=== PATIENT | female | born 1945 | race Caucasian/White ===

== ENCOUNTER 2024-08-20 02:35 | Inpatient (IN) | payer MEDICARE, BC ==
--- NOTE | 2024-08-20 04:11 | XR ---
EXAM: XR Abdomen, 1 View CLINICAL HISTORY: ITS.REASON XR Reason: pain TECHNIQUE: Frontal supine view of the abdomen/pelvis. COMPARISON: No relevant prior studies available. FINDINGS: Gastrointestinal tract: Dilated bowel measuring up to 5.6 cm, concerning for bowel obstruction. Consider CT abdomen pelvis for further evaluation. Bones/joints: Unremarkable. IMPRESSION: Dilated bowel measuring up to 5.6 cm, concerning for bowel obstruction. Consider CT abdomen pelvis for further evaluation.
[2024-08-20] MEDS: SODIUM CHLORIDE 0.9% 500 ML 500 ML IV STA (04:47)
[2024-08-20] MEDS: ONDANSETRON 4 MG/2 ML VIAL IVP STA (04:47)
[2024-08-20 04:57] LABS: ALT 32 U/L (4-34); AST 41 U/L (14-36); African American GFR (CKD) >90 (>60 ml/min/1.73 sqM); Albumin 4.9 g/dL (3.5-5.0); Alkaline Phosphatase 99 U/L (38-126); Amylase 50 U/L (30-110); Anion Gap 13 mmol/L; Blood Urea Nitrogen 17 mg/dL (7-17); Calcium 10.1 mg/dL (8.4-10.2); Carbon Dioxide 22 mmol/L (22-30); Chloride 107 mmol/L (98-107); Glucose 185 mg/dL (74-99); Lipase 53 U/L (23-300); Non-African American GFR(CKD) 88 (>60 ml/min/1.73 sqM); Potassium 3.9 mmol/L (3.5-5.1); Sodium 142 mmol/L (137-145); Total Protein 7.2 g/dL (6.3-8.2)
[2024-08-20 05:06] LABS: Basophils # (A) 0.05 10*3/uL (0.00-0.10); Basophils % (A) 0.8 %; Eosinophils # (A) 0.03 10*3/uL (0.04-0.35); Eosinophils % (A) 0.5 %; HCT 46.4 % (37.2-46.3); HGB 16.1 g/dL (12.0-15.0); Lymphocytes # (A) 0.26 10*3/uL (0.90-5.00); Lymphocytes % (A) 4.0 %; MCH 31.0 pg (27.0-32.0); MCHC 34.7 g/dL (32.0-37.0); MCV 89.4 fL (80.0-97.0); Monocytes # (A) 0.61 10*3/uL (0.20-1.00); Monocytes % (A) 9.4 %; Neutrophils # (A) 5.53 10*3/uL (1.80-7.70); Neutrophils % (A) 85.1 %; Platelet Count 318 10*3/uL (140-440); RBC 5.19 10*6/uL (4.10-5.20); RDW 12.3 % (11.5-14.5); WBC 6.49 10*3/uL (4.50-10.00)
--- NOTE | 2024-08-20 06:40 | CT ---
EXAM: CT Abdomen and Pelvis With Intravenous Contrast CLINICAL HISTORY: ITS.REASON CT Reason: abdominal pain TECHNIQUE: Axial computed tomography images of the abdomen and pelvis with intravenous contrast. CTDI is 13.4 mGy and DLP is 633.6 mGy-cm. This CT exam was performed using one or more of the following dose reduction techniques: automated exposure control, adjustment of the mA and/or kV according to patient size, and/or use of iterative reconstruction technique. COMPARISON: No relevant prior studies available. FINDINGS: Lung bases: Unremarkable. No mass. No consolidation. Mediastinum: Slighted hiatal hernia containing the proximal portion of the stomach. Mild distal esophageal wall thickening. ABDOMEN: Liver: The liver is enlarged. No evidence of hepatic mass. Likely focal fatty sparing is seen within the left lobe of the liver. Gallbladder and bile ducts: Unremarkable. No calcified stones. No ductal dilation. Pancreas: Unremarkable. No mass. No ductal dilation. Spleen: Unremarkable. No splenomegaly. Adrenals: Unremarkable. No mass. Kidneys and ureters: Unremarkable. No solid mass. No hydronephrosis. Stomach and bowel: Diffuse dilatation of the small bowel with a transition point seen above the level of the anastomosis best characterized on series 201 image 45 through 53. Postsurgical changes are seen to the colon. Mild wall thickening of the remaining colon. PELVIS: Appendix: No findings to suggest acute appendicitis. Bladder: Unremarkable. No mass. Reproductive: Unremarkable as visualized. ABDOMEN and PELVIS: Intraperitoneal space: Unremarkable. No free air. No significant fluid collection. Bones/joints: Degenerative changes are seen within the spine and hips. No acute fracture. No dislocation. Soft tissues: Unremarkable. Vasculature: Calcifications are seen within a nondilated aorta. Lymph nodes: Unremarkable. No enlarged lymph nodes. IMPRESSION: 1. Findings consistent with a small bowel obstruction with transition point seen at the level of the anastomosis. 2. Wall thickening of the remaining colon and rectum which may represent underlying infectious or inflammatory process.
[2024-08-20] MEDS ORDERED: KETOROLAC 15 MG/ML 1 ML VIAL IVP PRN (07:06)
[2024-08-20] MEDS ORDERED: NALOXONE 0.4 MG/ML 1 ML VIAL IV PRN (07:06)
--- NOTE | 2024-08-20 07:09 | ED ---
General Adult HPI - General Chief complaint: Nausea/Vomiting/Diarrhea Stated complaint: NVD Time Seen by Provider: 08/20/24 04:08 Source: patient, RN notes reviewed, old records reviewed Mode of arrival: ambulatory Limitations: no limitations - History of Present Illness Initial comments: 79-year-old female who presents emergency department concern for possible bowel obstruction. Patient has been having brown emesis throughout the day today. No recent bowel movements. Has a history of multiple colon resection secondary to colon cancer and obstructions. Denies any chest pain or shortness of breath. Has no other acute complaints at this time. Presents for further evaluation. - Related Data Allergies Allergy/AdvReac Type Severity Reaction Status Date / Time No Known Allergies Allergy Verified 08/20/24 02:41 Review of Systems ROS Statement: Those systems with pertinent positive or pertinent negative responses have been documented in the HPI. Review of Systems: CONST: Denies fever EYES: Denies blurry vision ENT: Denies nasal congestion C/V: Denies Chest pain RESP: Denies shortness of breath GI: Endorses abdominal pain : Denies dysuria SKIN: Denies rash. MSK: Denies joint pain. NEURO: Denies headache ROS Other: All systems not noted in ROS Statement are negative. Past Medical History Past Medical History: Cancer Additional Past Medical History / Comment(s): colon cancer, History of Any Multi-Drug Resistant Organisms: None Reported Additional Past Surgical History / Comment(s): colon Past Psychological History: No Psychological Hx Reported Smoking Status: Never smoker Past Alcohol Use History: None Reported Past Drug Use History: None Reported General Exam - General Exam Comments Initial Comments: General: Appears in mild to moderate distress secondary to abdominal pain. HEAD: Normal with no signs of head trauma. EYES: PERRLA, EOMI, conjunctiva normal, no discharge. ENT: Hearing grossly intact, normal oropharynx. RESPIRATORY: Clear breath sounds bilaterally. No wheezes, rales, or rhonchi. C/V: Regular rate and rhythm. S1 and S2 auscultated, no edema, peripheral pulses 2+ and intact throughout ABD: Abdomen is soft. Mildly distended that is generalized. Generalized tenderness to palpation. No guarding or rebound tenderness. No peritoneal signs. EXT: No obvious deformity. SKIN: No rashes or lesions observed on exposed skin. NEURO: Alert and oriented x 4. Limitations: no limitations Course Vital Signs 08/20/24 08/20/24 02:36 08:05 Temperature 99.6 F Pulse Rate 115 H 94 Respiratory 18 20 Rate Blood Pressure 159/91 168/68 O2 Sat by Pulse 97 98 Oximetry Medical Decision Making - Medical Decision Making Was pt. sent in by a medical professional or institution ([facility] Galarza, [facility], urgent care, hospital, or group home...) When possible be specific @ -No Did you speak to anyone other than the patient for history (EMS, parent, family, police, friend...)? What history was obtained from this source @ -No Did you review nursing and triage notes (agree or disagree)? Why? @ -I reviewed and agree with nursing and triage notes Were old charts reviewed (outside hosp., previous admission, EMS record, old EKG, old radiological studies, urgent care reports/EKG's, group home records)? Report findings @ -No old charts were reviewed Differential Diagnosis (chest pain, altered mental status, abdominal pain women, abdominal pain men, vaginal bleeding, weakness, fever, dyspnea, syncope, headache, dizziness, GI bleed, back pain, seizure, CVA, palpatations, mental health, musculoskeletal)? @ -Differential Abdominal Pain Women: Appendicitis, Cholecystitis, diverticulosis, ischemic bowel, pancreatitis, hepatitis, UTI, gastroenteritis, AAA, incarcerated hernia, bowel obstruction, co nstipation, inflammatory bowel, hepatitis, peptic ulcer disease, splenic infarction, perforated viscus, vulvitis, ovarian torsion, PID, kidney stone, placenta abruption, this is not meant to be an all-inclusive list EKG interpreted by me (3pts min.). @ -None done X-rays interpreted by me (1pt min.). @ -KUB x-ray shows pattern concerning for bowel obstruction. CT interpreted by me (1pt min.). @ -CT abdomen pelvis shows a small bowel obstruction with a transition point at the anastomosis site U/S interpreted by me (1pt. min.). @ -None done What testing was considered but not performed or refused? (CT, X-rays, U/S, labs)? Why? @ -None What meds were considered but not given or refused? Why? @ -None Did you discuss the management of the patient with other professionals (professionals i.e. , DONITA, [employer], lab, RT, psych nurse, social services coordinator, ethanol quality leader, teacher, cash management officer, director of casework department)? Give summary @ -Discussed with Dr. Rawls who wants patient mated to medicine. Patient made n.p.o. and NG tube placed. Put on low intermittent suction. With admitting team, Dr. Pascual, who accepted the admission. Was smoking cessation discussed for >3mins.? @ -No Was critical care preformed (if so, how long)? @ -No Were there social determinants of health that impacted care today? How? (H omelessness, low income, unemployed, alcoholism, drug addiction, transportation, low edu. Level, literacy, decrease access to med. care, snf, rehab)? @ -No Was there de-escalation of care discussed even if they declined (Discuss DNR or withdrawal of care, Hospice)? DNR status @ -No What co-morbidities impacted this encounter? (DM, HTN, Smoking, COPD, CAD, Cancer, CVA, ARF, Chemo, Hep., AIDS, mental health diagnosis, sleep apnea, morbid obesity)? @ -None Was patient admitted / discharged? Hospital course, mention meds given and route, prescriptions, significant lab abnormalities, going to OR and other pertinent info. @ -Based on patient's presentation and physical exam, presents emergency department with suspicion for small bowel obstruction. KUB obtained while patient was in triage which shows findings concerning for 1. We will obtain CT as well as labs. Patient was in agreement this plan. Symptomatic treat with IV fluids, Zofran, Toradol, Protonix. Vitals within acceptable limits. Laboratory studies are remarkable for mild lactic acidosis of 2.2. Remainder the labs unremarkable. CT shows small bowel obstruction. I updated the patient. NG tube will be placed in put on low intermittent suction. She will be admitted. Patient made NPO. Discussed with Dr. Rawls who wants patient mated to medicine. Patient made n.p.o. and NG tube placed. Put on low intermittent suction. With admitting team, Dr. Pascual, who accepted the admission. Undiagnosed new problem with uncertain prognosis? @ -No Drug Therapy requiring intensive monitoring for toxicity (Heparin, Nitro, Insulin, Cardizem)? @ -No Were any procedures done? @ -No Diagnosis/symptom? @ -Small bowel obstruction Acute, or Chronic, or Acute on Chronic? @ -Acute Uncomplicated (without systemic symptoms) or Complicated (systemic symptoms)? @ -Complicated Side effects of treatment? @ -No Exacerbation, Progression, or Severe Exacerbation? @ -No Poses a threat to life or bodily function? How? (Chest pain, USA, GA, pneumonia, PE, COPD, DKA, ARF, appy, cholecystitis, CVA, Diverticulitis, Homicidal, Suicidal, threat to staff... and all critical care pts) @ -Yes - Lab Data Result diagrams: 08/20/24 04:27 08/20/24 04:27 Lab Results 08/20/24 08/20/24 08/20/24 Range/Units 04:27 04:27 04:27 WBC 6.49 (4.50-10.00) 10*3/uL RBC 5.19 (4.10-5.20) 10*6/uL Hgb 16.1 H (12.0-15.0) g/dL Hct 46.4 H (37.2-46.3) % MCV 89.4 (80.0-97.0) fL MCH 31.0 (27.0-32.0) pg MCHC 34.7 (32.0-37.0) g/dL Plt Count 318 (140-440) 10*3/uL MPV 8.8 L (9.5-12.2) fL Immature Gran % (Auto) 0.2 % Neutrophils % 85.1 % Lymphocytes % 4.0 % Monocytes % 9.4 % Eosinophils % 0.5 % Basophils % 0.8 % Immature Gran # 0.01 (0.00-0.04) 10*3/uL Neutrophils # 5.53 (1.80-7.70) 10*3/uL Lymphocytes # 0.26 L (0.90-5.00) 10*3/uL Monocytes # 0.61 (0.20-1.00) 10*3/uL Eosinophils # 0.03 L (0.04-0.35) 10*3/uL Basophils # 0.05 (0.00-0.10) 10*3/uL Sodium 142 (137-145) mmol/L Potassium 3.9 (3.5-5.1) mmol/L Chloride 107 (98-107) mmol/L Carbon Dioxide 22 (22-30) mmol/L Anion Gap 13 mmol/L BUN 17 (7-17) mg/dL Creatinine 0.58 (0.52-1.04) mg/dL Est GFR (CKD-EPI)AfAm >90 (>60 ml/min/1.73 sqM) Est GFR (CKD-EPI)NonAf 88 (>60 ml/min/1.73 sqM) Glucose 185 H (74-99) mg/dL Lactic Ac Sepsis Rflx Plasma Lactic Acid Evgeny 2.2 H* (0.7-2.0) mmol/L Calcium 10.1 (8.4-10.2) mg/dL Total Bilirubin 1.1 (0.2-1.3) mg/dL AST 41 H (14-36) U/L ALT 32 (4-34) U/L Alkaline Phosphatase 99 (38-126) U/L Total Protein 7.2 (6.3-8.2) g/dL Albumin 4.9 (3.5-5.0) g/dL Amylase 50 (30-110) U/L Lipase 53 (23-300) U/L // Range/Units 05:30 WBC (4.50-10.00) 10*3/uL RBC (4.10-5.20) 10*6/uL Hgb (12.0-15.0) g/dL Hct (37.2-46.3) % MCV (80.0-97.0) fL MCH (27.0-32.0) pg MCHC (32.0-37.0) g/dL Plt Count (140-440) 10*3/uL MPV (9.5-12.2) fL Immature Gran % (Auto) % Neutrophils % % Lymphocytes % % Monocytes % % Eosinophils % % Basophils % % Immature Gran # (0.00-0.04) 10*3/uL Neutrophils # (1.80-7.70) 10*3/uL Lymphocytes # (0.90-5.00) 10*3/uL Monocytes # (0.20-1.00) 10*3/uL Eosinophils # (0.04-0.35) 10*3/uL Basophils # (0.00-0.10) 10*3/uL Sodium (137-145) mmol/L Potassium (3.5-5.1) mmol/L Chloride (98-107) mmol/L Carbon Dioxide (22-30) mmol/L Anion Gap mmol/L BUN (7-17) mg/dL Creatinine (0.52-1.04) mg/dL Est GFR (CKD-EPI)AfAm (>60 ml/min/1.73 sqM) Est GFR (CKD-EPI)NonAf (>60 ml/min/1.73 sqM) Glucose (74-99) mg/dL Lactic Ac Sepsis Rflx Y Plasma Lactic Acid Evgeny (0.7-2.0) mmol/L Calcium (8.4-10.2) mg/dL Total Bilirubin (0.2-1.3) mg/dL AST (14-36) U/L ALT (4-34) U/L Alkaline Phosphatase (38-126) U/L Total Protein (6.3-8.2) g/dL Albumin (3.5-5.0) g/dL Amylase (30-110) U/L Lipase (23-300) U/L Disposition Clinical Impression: Small bowel obstruction Disposition: ADMITTED IP TO THIS [facility] Condition: Stable Time of Disposition: 07:08
[2024-08-20] MEDS: KETOROLAC 15 MG/ML 1 ML VIAL IVP STA (07:58)
[2024-08-20] MEDS: ONDANSETRON 4 MG/2 ML VIAL IVP PRN (07:58)
[2024-08-20] MEDS: LACTATED RINGERS 1,000 ML IV SCH (07:59)
[2024-08-20] MEDS: PANTOPRAZOLE 40 MG/10 ML VIAL IVP STA (07:59)
[2024-08-20] MEDS: PANTOPRAZOLE 40 MG/10 ML VIAL IV SCH (08:11)
--- NOTE | 2024-08-20 08:53 | XR ---
EXAMINATION TYPE: XR KUB portable DATE OF EXAM: 08/20/2024 8:28 AM COMPARISON: 08/20/2024. CLINICAL INDICATION: Female, 79 years old with history of ngt placemnt; TECHNIQUE: One radiographic view of the abdomen was obtained. FINDINGS: The bowel gas pattern is nonspecific without dilated loops of small or large bowel. . Fecal material and gas are demonstrated throughout the colon and rectum. There is no evidence for organome loida or pneumoperitoneum. No acute osseous process. No abnormal calcifications are present. Nasogastric tube in satisfactory position over the gastric lumen in the left upper quadrant. IMPRESSION: Nasogastric tube in satisfactory position over the gastric lumen in the left upper quadrant. Nonspeci fic bowel gas pattern without radiographic evidence for acute process. [facility], , 08/20/2024 8:51 AM
[2024-08-20] MEDS: ENOXAPARIN 40 MG/0.4 ML SYRINGE SQ SCH (09:13)
[2024-08-20] MEDS: SODIUM CHLORIDE 0.9% 1,000 ML IV ONE (09:20)
[2024-08-20] MEDS: LACTATED RINGERS 1,000 ML IV ONE ×2 (09:21→09:22)
--- NOTE | 2024-08-20 09:23 | P.GSCN ---
History of Present Illness Consult date: 08/20/24 History of present illness: CHIEF COMPLAINT: Bowel obstruction HISTORY OF PRESENT ILLNESS: The patient is a 79-year-old female who was vacationing in [place] to see her grandsons graduation including Blossom Villagomez to develop intractable nausea and vomiting overnight. She is pre-existing history of multiple bowel obstructions. Last surgical procedure was in 2012 with lysis of adhesions laparoscopically for bowel obstruction. Patient often is treated conservatively with nasogastric tube decompression. Since admission and placement of nasogastric tube, nausea and vomiting is resolved. Diffuse abdominal pain improved. Patient is yet to pass flatus. Patient lives in a different state and wishes to go home as soon as possible. PAST MEDICAL HISTORY: See list and reviewed PAST SURGICAL HISTORY: See list and reviewed MEDICATIONS: See list and reviewed ALLERGIES: See list and reviewed SOCIAL HISTORY: See list and reviewed FAMILY HISTORY: See list and reviewed REVIEW OF ORGAN SYSTEMS: CONSTITUTIONAL: No fevers or chills. EYES: Denies any trouble with vision. No glasses. HEENT: No difficulties with hearing. No nosebleeds. No difficulty swallowing. RESPIRATORY: Denies pneumonia. Denies any troubles with breathing or dyspnea on exertion. CARDIOVASCULAR: Denies any chest pain, palpitations, or recent heart attacks. GASTROINTESTINAL: History of colon resection 2005 followed by lysis of adhesion 2012. History of recurrent bowel obstructions. GENITOURINARY: Denies any blood in urine or increased urinary frequency. NEUROLOGICAL: Denies any numbness or tingling along the distal extremities. No seizure disorders or headaches. MUSCULOSKELETAL: Denies any back pain, stiffness or joint arthritis. SKIN: No current skin cancer. No rash. PSYCHIATRIC: Denies current depression or suicidal thoughts. ENDOCRINE: Has hypothyroidism. HEME/LYMPHATIC: Denies any lumps and bumps around the neck. No recent deep venous thrombosis. ALLERGY/IMMUNOLOGY: No immunoglobulin therapy. No immune deficiencies. BREAST: Denies current breast lumps, pain or nipple discharge. PHYSICAL EXAM: VITALS: Reviewed CONSTITUTIONAL: Well developed and in no acute distress. EYES: Conjuctivae without sclera icterus. Extraocular movements grossly intact . HEAD, EARS, NOSE, THROAT: Moist buccal mucosa. Head is atraumatic, normocephalic. Hears conversational speech. No nasal drainage. Nasogastric tube with nonbilious nonbloody NECK: Supple. No JV distention. No thyroidomegaly. RESPIRATORY: Non-labored respirations and equal bilateral excursions. No gross wheezes. CARDIOVASCULAR: Palpable 2+ radial pulses. ABDOMEN: No diffuse peritonitis. Minimal distention. LYMPH: No neck lymphadenopathy. MUSCULOSKELETAL: No clubbing cyanosis or edema SKIN: Warm and well perfused with good skin turgor. NEUROLOGIC: Cranial nerves II through XII grossly intact. No focal or lateralizing signs. PSYCH: Appropriate affect. Alert and oriented to person, place and time. Displays appropriate insight. CLINCAL LABS: Reviewed. Hemoglobin elevated 16.1, hemoconcentrated. Lactic acid elevated over 2.2 IMAGING: Independently reviewed. CT of the abdomen pelvis independent reviewed demonstrate diffuse small including large bowel distention with decompressed bowel within the deep pelvis. This is my independent interpretation. RADIOLOGY: Report reviewed. CT report demonstrates transition point at anastomosis for bowel obstruction. RECORDS: No previous records available at this institution. ASSESSMENT: 1. Small bowel obstruction due to adhesions 2. Dehydration with intractable nausea and vomiting 3. Lactic acidosis 4. Hemoconcentration 5. Hypothyroidism PLAN: 1. IV fluid hydration with total of 2 L normal saline to address lactic acidosis and severe dehydration. Recommend repeat CBC for accurate hemoglobin after hydration. 2. Continue nasogastric tube decompression until flatus. 3. May have ice chips and popsicles while n.p.o. 4. DVT prophylaxis with heparin 5. Will obtain cardiac risk assessment for risk of surgical intervention 6. Overall, conservative management advised patient does not live in state and only vacationing while she got sick 7. All questions were addressed with patient 8. Nonnarcotic scheduled IV Tylenol initiated as to avoid Toradol for risk of renal injury ADVANCE DIRECTIVE: CODE STATUS in chart Thank you for this kind consultation. Dictation was produced using [employer] software. Please excuse any grammatical, word or spelling errors. Past Medical History Past Medical History: Cancer Additional Past Medical History / Comment(s): colon cancer, History of Any Multi-Drug Resistant Organisms: None Reported Additional Past Surgical History / Comment(s): colon Past Psychological History: No Psychological Hx Reported Smoking Status: Never smoker Past Alcohol Use History: None Reported Past Drug Use History: None Reported Medications and Allergies Allergies Allergy/AdvReac Type Severity Reaction Status Date / Time No Known Allergies Allergy Verified 08/20/24 02:41 Surgical - Exam Vital Signs Temp Pulse Resp BP Pulse Ox 99.6 F 115 H 18 159/91 97 08/20/24 02:36 08/20/24 02:36 08/20/24 02:36 08/20/24 02:36 08/20/24 02:36 Results - Labs 08/20/24 04:27 08/20/24 04:27 Abnormal Lab Results - Last 24 Hours (Table) 08/20/24 08/20/24 08/20/24 Range/Units 04:27 04:27 04:27 Hgb 16.1 H (12.0-15.0) g/dL Hct 46.4 H (37.2-46.3) % MPV 8.8 L (9.5-12.2) fL Lymphocytes # 0.26 L (0.90-5.00) 10*3/uL Eosinophils # 0.03 L (0.04-0.35) 10*3/uL Glucose 185 H (74-99) mg/dL Plasma Lactic Acid Evgeny 2.2 H* (0.7-2.0) mmol/L AST 41 H (14-36) U/L Diabetes panel 08/20/24 Range/Units 04:27 Sodium 142 (137-145) mmol/L Potassium 3.9 (3.5-5.1) mmol/L Chloride 107 (98-107) mmol/L Carbon Dioxide 22 (22-30) mmol/L BUN 17 (7-17) mg/dL Creatinine 0.58 (0.52-1.04) mg/dL Glucose 185 H (74-99) mg/dL Calcium 10.1 (8.4-10.2) mg/dL AST 41 H (14-36) U/L ALT 32 (4-34) U/L Alkaline Phosphatase 99 (38-126) U/L Total Protein 7.2 (6.3-8.2) g/dL Albumin 4.9 (3.5-5.0) g/dL Calcium panel 08/20/24 Range/Units 04:27 Calcium 10.1 (8.4-10.2) mg/dL Albumin 4.9 (3.5-5.0) g/dL Pituitary panel 08/20/24 Range/Units 04:27 Sodium 142 (137-145) mmol/L Potassium 3.9 (3.5-5.1) mmol/L Chloride 107 (98-107) mmol/L Carbon Dioxide 22 (22-30) mmol/L BUN 17 (7-17) mg/dL Creatinine 0.58 (0.52-1.04) mg/dL Glucose 185 H (74-99) mg/dL Calcium 10.1 (8.4-10.2) mg/dL Adrenal panel 08/20/24 Range/Units 04:27 Sodium 142 (137-145) mmol/L Potassium 3.9 (3.5-5.1) mmol/L Chloride 107 (98-107) mmol/L Carbon Dioxide 22 (22-30) mmol/L BUN 17 (7-17) mg/dL Creatinine 0.58 (0.52-1.04) mg/dL Glucose 185 H (74-99) mg/dL Calcium 10.1 (8.4-10.2) mg/dL Total Bilirubin 1.1 (0.2-1.3) mg/dL AST 41 H (14-36) U/L ALT 32 (4-34) U/L Alkaline Phosphatase 99 (38-126) U/L Total Protein 7.2 (6.3-8.2) g/dL Albumin 4.9 (3.5-5.0) g/dL
[2024-08-20 12:28] LABS: Bilirubin,Urine Negative (Negative); Blood,Urine Negative (Negative); Color,Urine Light Yellow; Glucose,Urine (UA) Negative (Negative); Ketones,Urine 2+ (Negative); Leukocyte Esterase,Urine Negative (Negative); Nitrite,Urine Negative (Negative); PH, Urine 5.5 (5.0-8.0); Protein,Urine Negative (Negative); Urobilinogen,Urine <2.0 mg/dL (<2.0)
[2024-08-20 12:37] LABS: Specific Gravity,Urine >1.050 (1.001-1.035)
[2024-08-20] MEDS: ACETAMINOPHEN IV (For NPO) 1,000 MG in EMPTY BAG 1 BAG IVPB SCH (13:01)
--- NOTE | 2024-08-20 13:59 | XR ---
EXAMINATION TYPE: XR chest 1V portable DATE OF EXAM: 08/20/2024 1:42 PM COMPARISON: None CLINICAL INDICATION: Female, 79 years old with history of tube placement; TECHNIQUE: XR chest 1V portable Frontal view of the chest. FINDINGS: Lungs/Pleura: There is flattening of the diaphragm with increased lucency of the lungs. No evidence o f pneumothorax, pleural effusion or focal consolidation. Pulmonary vascularity: Unremarkable. Heart/mediastinum: Cardiomediastinal silhouette is unremarkable. Musculoskeletal: No acute osseous pathology. Other findings: None Lines/Tubes: Nasogastric tube with its distal tip and side-port projecting under the diaphragm. IMPRESSION: No acute cardiopulmonary disease/process. [facility], , 08/20/2024 1:57 PM
--- NOTE | 2024-08-20 17:11 | P.HPIM ---
History of Present Illness H&P Date: 08/20/24 History of present illness; patient 79-year-old lady with history of prior bowel obstructions who presented the ER because of nausea and vomiting. Patient was all right couple of days back when started having nausea and vomiting. Patient was apparently vacationing in [place] when the symptoms started. Patient has history of prior bowel obstructions and became concerned immediately of having a similar episode. Complaining abdominal pain at that time as well. There was no complaint of chest pain. There was no complaint of orthopnea or PND. There was no complaint of shortness of breath at that time. Patient denies any palpitation. Patient denies any complaint of dizziness. There is no complaint of headache. Because of the symptoms, patient came to the ER Initial lab work done in the ER showed WBC 0.49, hemoglobin 16.1, platelet count 318, sodium 142, potassium 3.9, BUN 17, creatinine 0.58, glucose 185, lactate 2.2, calcium 10.1, AST 41, ALT 32 alk phos 99, total protein 7.2 EKG done in the ER showed heart rate of 94 , no ST segment elevation or depression seen, no T-wave inversions seen. X-ray KUB done Showed dilated bowel measuring up to 5.6 cm concerning for bowel obstruction CT abdomen and pelvis done showed finding consistent with a small bowel obstruction with transition point seen at the level of anastomosis. Patient admitted to internal medicine service REVIEW OF SYSTEMS: CONSTITUTIONAL: No fever, no malaise, no fatigue. HEENT: No recent visual problems or hearing problems. Denied any sore throat. CARDIOVASCULAR: No chest pain, orthopnea, PND, no palpitations, no syncope. PULMONARY: No shortness of breath, no cough, no hemoptysis. GASTROINTESTINAL: As mentioned above NEUROLOGICAL: No headaches, no weakness, no numbness. HEMATOLOGICAL: Denies any bleeding or petechiae. GENITOURINARY: Denies any burning micturition, frequency, or urgency. MUSCULOSKELETAL/RHEUMATOLOGICAL: Denies any joint pain, swelling, or any muscle pain. ENDOCRINE: Denies any polyuria or polydipsia. The rest of the 14-point review of systems is negative. PHYSICAL EXAMINATION: GENERAL: The patient is alert and oriented x3, not in any acute distress. Well developed, well nourished. HEENT: Pupils are round and equally reacting to light. EOMI. No scleral icterus. No conjunctival pallor. Normocephalic, atraumatic. No pharyngeal erythema. No thyromegaly. CARDIOVASCULAR: S1 and S2 present. No murmurs, rubs, or gallops. PULMONARY: Chest is clear to auscultation, no wheezing or crackles. ABDOMEN: Distended, bowel sounds not abdomen ordered, No palpable organomegaly. MUSCULOSKELETAL: No joint swelling or deformity. EXTREMITIES: No cyanosis, clubbing, or pedal edema. NEUROLOGICAL: Gross neurological examination did not reveal any focal deficits. SKIN: No rashes. Assessment and plan Small bowel obstruction Lactic acidosis History of prior bowel obstruction Hypothyroidism Monitor vital signs Monitor CBC Monitor CMP Keep patient n.p.o. Serial abdominal exam Serial electrolytes Continue IV fluid Ordered IV Protonix Resume home meds Surgery consult Labs and medication were reviewed.. Continue same treatment. Continue with sy mptomatic treatment. Resume home medication. Monitor labs and vitals. DVT and GI prophylaxis. Further recommendations as per clinical course of the patient Dictation was produced using [employer] dictation software. please excuse any grammatical, word or spelling errors. Past Medical History Past Medical History: Cancer, Thyroid Disorder Additional Past Medical History / Comment(s): colon cancer History of Any Multi-Drug Resistant Organisms: None Reported Additional Past Surgical History / Comment(s): colon Past Anesthesia/Blood Transfusion Reactions: Postoperative Nausea & Vomiting (PONV) Past Psychological History: No Psychological Hx Reported Smoking Status: Never smoker Past Alcohol Use History: None Reported Past Drug Use History: None Reported Medications and Allergies Home Medications Medication Instructions Recorded Confirmed Type Aspirin EC [Ecotrin Low Dose] 81 mg PO PC-BRKFST 08/20/24 08/20/24 History Docusate [Colace] 100 mg PO PC-BRKFST 08/20/24 08/20/24 History Levothyroxine Sodium [Synthroid] 125 mcg PO AC-BRKFST 08/20/24 08/20/24 History Multivitamins, Thera [Multivitamin 1 tab PO PC-BRKFST 08/20/24 08/20/24 History (formulary)] Vit C/E/Zn/Coppr/Lutein/Zeaxan 1 cap PO PC-BID 08/20/24 08/20/24 History [Preservision Areds 2 Softgel] Allergies Allergy/AdvReac Type Severity Reaction Status Date / Time No Known Allergies Allergy Verified 08/20/24 09:48 Physical Exam Vitals: Vital Signs Temp Pulse Resp BP Pulse Ox 08/20/24 10:00 68 16 136/68 98 08/20/24 09:00 68 16 148/68 98 08/20/24 08:05 94 20 168/68 98 08/20/24 02:36 99.6 F 115 H 18 159/91 97 Intake and Output 08/19/24 08/20/24 08/20/24 22:59 06:59 14:59 Other: Weight 63.503 kg 63.503 kg Results CBC & Chem 7: 08/20/24 04:27 08/20/24 04:27 Labs: Abnormal Lab Results - Last 24 Hours (Table) 08/20/24 08/20/24 08/20/24 Range/Units 04:27 04:27 04:27 Hgb 16.1 H (12.0-15.0) g/dL Hct 46.4 H (37.2-46.3) % MPV 8.8 L (9.5-12.2) fL Lymphocytes # 0.26 L (0.90-5.00) 10*3/uL Eosinophils # 0.03 L (0.04-0.35) 10*3/uL Glucose 185 H (74-99) mg/dL Plasma Lactic Acid Evgeny 2.2 H* (0.7-2.0) mmol/L AST 41 H (14-36) U/L 08/20/24 Range/Units 08:32 Hgb (12.0-15.0) g/dL Hct (37.2-46.3) % MPV (9.5-12.2) fL Lymphocytes # (0.90-5.00) 10*3/uL Eosinophils # (0.04-0.35) 10*3/uL Glucose (74-99) mg/dL Plasma Lactic Acid Evgeny 2.8 H* (0.7-2.0) mmol/L AST (14-36) U/L Thrombosis Risk Factor Assmnt - Choose All That Apply Any of the Below Risk Factors Present?: Yes Each Risk Factor Represents 3 Points: Age 75 years or older Thrombosis Risk Factor Assessment Total Risk Factor Score: 3 Thrombosis Risk Factor Assessment Level: Moderate Risk
--- NOTE | 2024-08-20 20:33 | XR ---
EXAMINATION TYPE: XR chest 1V confirm line plcin DATE OF EXAM: 08/20/2024 8:17 PM COMPARISON: None. CLINICAL INDICATION: Female, 79 years old with history of NG tube placement, TECHNIQUE: Single frontal view of the chest is obtained. FINDINGS: There is no focal air space opacity, pleural effusion, or pneumothorax seen. The cardiac silhouette size is within normal limits. The osseous structures are intact. IMPRESSION: No acute process. NG tube seen coursing into the stomach. [facility], , 08/20/2024 8:31 PM
[2024-08-20] MEDS: HEPARIN SODIUM,PORCINE 5,000 UNIT/ML 1 ML VIAL SQ SCH (21:42)
--- NOTE | 2024-08-21 08:27 | XR ---
EXAMINATION TYPE: XR chest 1V DATE OF EXAM: 08/21/2024 COMPARISON: 08/20/2024 CLINICAL INDICATION: Female, 79 years old with history of NG tube placement; TECHNIQUE: Single frontal view of the chest is obtained. FINDINGS: NG tube courses below the diaphragm. Heart upper limits of normal in size. Mild hyperinflation. Pulmo nary vasculature within normal limits. Mildly tortuous/ectatic thoracic aorta. No annel consolidation or pleural effusion. IMPRESSION: 1. Satisfactory NG tube. 2. Borderline heart size and COPD. [facility], , 08/21/2024 8:24 AM
[2024-08-21] MEDS: LEVOTHYROXINE 125 MCG TAB PO SCH (10:01)
[2024-08-21 10:33] LABS: ALT 23 U/L (8-44); AST 22 U/L (13-35); Albumin 3.5 g/dL (3.8-4.9); Albumin/Globulin Ratio 2.19 Ratio (1.60-3.17); Alkaline Phosphatase 66 U/L (41-126); Anion Gap 13.70 mmol/L (4.00-12.00); BUN/Creat Ratio 26.60 Ratio (12.00-20.00); Blood Urea Nitrogen 13.3 mg/dL (9.0-27.0); Calcium 8.5 mg/dL (8.7-10.3); Carbon Dioxide 21.3 mmol/L (21.6-31.8); Chloride 108 mmol/L (96-109); Globulin 1.6 g/dL (1.6-3.3); Glucose 87 mg/dL (70-110); Potassium 3.4 mmol/L (3.5-5.5); Sodium 143 mmol/L (135-145); Total Protein 5.1 g/dL (6.2-8.2)
[2024-08-21 10:59] LABS: Basophils # (A) 0.03 X 10*3/uL (0.00-0.10); Basophils % (A) 0.7 %; Eosinophils # (A) 0.01 X 10*3/uL (0.04-0.35); Eosinophils % (A) 0.2 %; HCT 38.2 % (37.2-46.3); HGB 12.7 g/dL (12.0-15.0); Immature Grans, Automated 0.50 %; Lymphocytes # (A) 0.62 X 10*3/uL (0.90-5.00); Lymphocytes % (A) 15.1 %; MCH 30.4 pg (27.0-32.0); MCHC 33.2 g/dL (32.0-37.0); MCV 91.4 FL (80.0-97.0); Monocytes # (A) 0.94 X 10*3/uL (0.20-1.00); Monocytes % (A) 22.9 %; NRBC Per 100 WBC 0 X 10*3/uL (0.00-0.01); Neutrophils # (A) 2.49 X 10*3/uL (1.80-7.70); Neutrophils % (A) 60.6 %; Platelet Count 277 X 10*3/uL (140-440); RBC 4.18 X 10*6/uL (4.10-5.20); RDW 12.6 % (11.5-14.5); WBC 4.11 X 10*3/uL (4.50-10.00)
[2024-08-21] MEDS: POTASSIUM CHLORIDE 10 MEQ in WATER FOR INJECTION 1 100ML.BAG IVPB STA (11:33)
--- NOTE | 2024-08-21 14:28 | P.PN ---
Subjective Progress Note Date: 08/21/24 patient 79-year-old lady with history of prior bowel obstructions who presented the ER because of nausea and vomiting. Patient was all right couple of days back when started having nausea and vomiting. Patient was apparently vacationing in [place] when the symptoms started. Patient has history of prior bowel obstructions and became concerned immediately of having a similar episode. Complaining abdominal pain at that time as well. There was no complaint of chest pain. There was no complaint of orthopnea or PND. There was no complaint of shortness of breath at that time. Patient denies any palpitation. Patient denies any complaint of dizziness. There is no complaint of headache. Because of the symptoms, patient came to the ER Initial lab work done in the ER showed WBC 0.49, hemoglobin 16.1, platelet count 318, sodium 142, potassium 3.9, BUN 17, creatinine 0.58, glucose 185, lactate 2.2, calcium 10.1, AST 41, ALT 32 alk phos 99, total protein 7.2 EKG done in the ER showed heart rate of 94 , no ST segment elevation or depression seen, no T-wave inversions seen. X-ray KUB done Showed dilated bowel measuring up to 5.6 cm concerning for bowel obstruction CT abdomen and pelvis done showed finding consistent with a small bowel obstruction with transition point seen at the level of anastomosis. Patient admitted to internal medicine service 08/21. Patient seen and examined. States she feels better. Potassium was 3.4, replacement ordered. Still has NG tube in place. No further episode nausea or vomiting or abdominal pain REVIEW OF SYSTEMS: CONSTITUTIONAL: No fever, no malaise,. CARDIOVASCULAR: No chest pain, no palpitations, no syncope. PULMONARY: No shortness of breath, no cough, GASTROINTESTINAL: Mentioned above NEUROLOGICAL: No headaches, no weakness, PHYSICAL EXAMINATION: GENERAL: The patient is alert and oriented x3, not in any acute distress. Well developed, well nourished. HEENT: Pupils are round and equally reacting to light. EOMI. No scleral icterus. No conjunctival pallor. Normocephalic, atraumatic. No pharyngeal erythema. No thyromegaly. CARDIOVASCULAR: S1 and S2 present. No murmurs, rubs, or gallops. PULMONARY: Chest is clear to auscultation, no wheezing or crackles. ABDOMEN: Soft, nontender, nondistended, normoactive bowel sounds. No palpable organomegaly. MUSCULOSKELETAL: No joint swelling or deformity. EXTREMITIES: No cyanosis, clubbing, or pedal edema. NEUROLOGICAL: Gross neurological examination did not reveal any focal deficits. SKIN: No rashes. Assessment and plan Small bowel obstruction Lactic acidosis History of prior bowel obstruction Hypothyroidism Monitor vital signs Monitor CBC Monitor CMP Keep patient n.p.o. Serial abdominal exam Serial electrolytes Continue IV fluid continue IV Protonix Potassium replacement ordered Surgery following, recommendations noted Labs and medication were reviewed.. Continue same treatment. Continue with symptomatic treatment. Resume home medication. Monitor labs and vitals. DVT and GI prophylaxis. Further recommendations as per clinical course of the patient Dictation was produced using [employer] dictation software. please excuse any grammatical, word or spelling errors. Objective - Vital Signs Vital signs: Vital Signs Temp 98.9 F 08/21/24 08:27 Pulse 107 H 08/21/24 08:27 Resp 16 08/21/24 08:27 BP 167/83 08/21/24 08:27 Pulse Ox 96 08/21/24 08:27 FiO2 Intake & Output 08/20/24 08/21/24 08/21/24 18:59 06:59 18:59 Weight 63.503 kg - Labs CBC & Chem 7: 08/21/24 05:59 08/21/24 05:59 Labs: Abnormal Lab Results - Last 24 Hours (Table) 08/20/24 08/20/24 08/21/24 Range/Units 12:00 13:20 05:59 WBC 4.11 L (4.50-10.00) X 10*3/uL Lymphocytes # 0.62 L (0.90-5.00) X 10*3/uL Eosinophils # 0.01 L (0.04-0.35) X 10*3/uL Potassium (3.5-5.5) mmol/L Carbon Dioxide (21.6-31.8) mmol/L Anion Gap (4.00-12.00) mmol/L Creatinine (0.6-1.5) mg/dL BUN/Creatinine Ratio (12.00-20.00) Ratio Plasma Lactic Acid Evgeny 2.2 H* (0.7-2.0) mmol/L Calcium (8.7-10.3) mg/dL Total Protein (6.2-8.2) g/dL Albumin (3.8-4.9) g/dL Ur Specific [place] >1.050 H (1.001-1.035) Urine Ketones 2+ H (Negative) 08/21/24 Range/Units 05:59 WBC (4.50-10.00) X 10*3/uL Lymphocytes # (0.90-5.00) X 10*3/uL Eosinophils # (0.04-0.35) X 10*3/uL Potassium 3.4 L (3.5-5.5) mmol/L Carbon Dioxide 21.3 L (21.6-31.8) mmol/L Anion Gap 13.70 H (4.00-12.00) mmol/L Creatinine 0.5 L (0.6-1.5) mg/dL BUN/Creatinine Ratio 26.60 H (12.00-20.00) Ratio Plasma Lactic Acid Evgeny (0.7-2.0) mmol/L Calcium 8.5 L (8.7-10.3) mg/dL Total Protein 5.1 L (6.2-8.2) g/dL Albumin 3.5 L (3.8-4.9) g/dL Ur Specific [place] (1.001-1.035) Urine Ketones (Negative)
--- NOTE | 2024-08-21 14:44 | P.PN ---
Subjective Progress Note Date: 08/21/24 CHIEF COMPLAINT: Bowel obstruction HISTORY OF PRESENT ILLNESS: The patient is a 79-year-old female with pre- existing history of bowel obstruction admitted for abdominal pain. Patient lives at a different state and was visiting [place]. She denies any passage of flatus. She had 3 attempts at placement of a nasogastric tube yesterday. Family is at bedside. She still feels "twisting". She is tolerating ice chips and popsicles. Family is at bedside. ROS: No reports of nausea and vomiting. No bowel movements. No fevers or chills. No new chest pain. No productive sputum PHYSICAL EXAM: VITAL SIGNS: Reviewed CONSTITUTIONAL: Well developed and in no acute distress. EYES: Conjuctivae without sclera icterus. Extraocular movements grossly intact. HEAD, EARS, NOSE, THROAT: Moist buccal mucosa. Head is atraumatic, normocephalic. Hears conversational speech. Blood around nose. Nasogastric tube bilious output RESPIRATORY: Non-labored respirations and equal bilateral excursions. CARDIOVASCULAR: Palpable 2+ radial pulses. ABDOMEN: No peritonitis. MUSCULOSKELETAL: No gross deformity of the lower extremities noted. No clubbing. No cyanosis. SKIN: Good skin turgor. Well perfused. NEUROLOGIC: Cranial nerves II through XII grossly intact. No focal or lateralizing signs. PSYCH: Appropriate affect. Alert and oriented to person, place and time. CLINICAL LABS: Reviewed. Hemoglobin normal. White blood cell count 4.1. Potassium low 3.4. Lactic acidosis resolved. ASSESSMENT: 1. Small bowel obstruction due to adhesions 2. Lactic acidosis resolved 3. Hypokalemia PLAN: 1. Will order Gastrografin upper GI small bowel follow-through but oftentimes resolves with a bowel obstruction. 2. Overall, conservative management being attempted as patient wishes to travel back to her home state for future surgical intervention. 3. Potassium supplementation advised Dictation was produced using [employer] dictation software. Please excuse any grammatical, word or spelling errors. Objective - Vital Signs Vital signs: Vital Signs Temp 99.4 F 08/21/24 12:29 Pulse 108 H 08/21/24 12:29 Resp 20 08/21/24 12:29 BP 158/75 08/21/24 12:29 Pulse Ox 97 08/21/24 12:29 FiO2 Intake & Output 08/20/24 08/21/24 08/21/24 18:59 06:59 18:59 Weight 63.503 kg - Labs CBC & Chem 7: 08/21/24 05:59 08/21/24 05:59 Labs: Abnormal Lab Results - Last 24 Hours (Table) 08/21/24 08/21/24 Range/Units 05:59 05:59 WBC 4.11 L (4.50-10.00) X 10*3/uL Lymphocytes # 0.62 L (0.90-5.00) X 10*3/uL Eosinophils # 0.01 L (0.04-0.35) X 10*3/uL Potassium 3.4 L (3.5-5.5) mmol/L Carbon Dioxide 21.3 L (21.6-31.8) mmol/L Anion Gap 13.70 H (4.00-12.00) mmol/L Creatinine 0.5 L (0.6-1.5) mg/dL BUN/Creatinine Ratio 26.60 H (12.00-20.00) Ratio Calcium 8.5 L (8.7-10.3) mg/dL Total Protein 5.1 L (6.2-8.2) g/dL Albumin 3.5 L (3.8-4.9) g/dL
[2024-08-22] MEDS: ONDANSETRON 4 MG/2 ML VIAL IVP PRN (13:02)
--- NOTE | 2024-08-22 14:21 | P.PN ---
Subjective Progress Note Date: 08/22/24 patient 79-year-old lady with history of prior bowel obstructions who presented the ER because of nausea and vomiting. Patient was all right couple of days back when started having nausea and vomiting. Patient was apparently vacationing in [place] when the symptoms started. Patient has history of prior bowel obstructions and became concerned immediately of having a similar episode. Complaining abdominal pain at that time as well. There was no complaint of chest pain. There was no complaint of orthopnea or PND. There was no complaint of shortness of breath at that time. Patient denies any palpitation. Patient denies any complaint of dizziness. There is no complaint of headache. Because of the symptoms, patient came to the ER Initial lab work done in the ER showed WBC 0.49, hemoglobin 16.1, platelet count 318, sodium 142, potassium 3.9, BUN 17, creatinine 0.58, glucose 185, lactate 2.2, calcium 10.1, AST 41, ALT 32 alk phos 99, total protein 7.2 EKG done in the ER showed heart rate of 94 , no ST segment elevation or depression seen, no T-wave inversions seen. X-ray KUB done Showed dilated bowel measuring up to 5.6 cm concerning for bowel obstruction CT abdomen and pelvis done showed finding consistent with a small bowel obstruction with transition point seen at the level of anastomosis. Patient admitted to internal medicine service 08/21. Patient seen and examined. States she feels better. Potassium was 3.4, replacement ordered. Still has NG tube in place. No further episode nausea or vomiting or abdominal pain. 08/22. Patient seen examined. Nausea and Vomiting, Still Has NG Tube in Place. Scheduled for Small Bowel Follow-Through Today REVIEW OF SYSTEMS: CONSTITUTIONAL: No fever, no malaise,. CARDIOVASCULAR: No chest pain, no palpitations, no syncope. PULMONARY: No shortness of breath, no cough, GASTROINTESTINAL: Mentioned above NEUROLOGICAL: No headaches, no weakness, PHYSICAL EXAMINATION: GENERAL: The patient is alert and oriented x3, not in any acute distress. Well developed, well nourished. HEENT: Pupils are round and equally reacting to light. EOMI. No scleral icterus. No conjunctival pallor. Normocephalic, atraumatic. No pharyngeal erythema. No thyromegaly. CARDIOVASCULAR: S1 and S2 present. No murmurs, rubs, or gallops. PULMONARY: Chest is clear to auscultation, no wheezing or crackles. ABDOMEN: Soft, nontender, nondistended, normoactive bowel sounds. No palpable organomegaly. MUSCULOSKELETAL: No joint swelling or deformity. EXTREMITIES: No cyanosis, clubbing, or pedal edema. NEUROLOGICAL: Gross neurological examination did not reveal any focal deficits. SKIN: No rashes. Assessment and plan Small bowel obstruction Lactic acidosis History of prior bowel obstruction Hypothyroidism Monitor vital signs Monitor CBC Monitor CMP Keep patient n.p.o. Serial abdominal exam Serial electrolytes Continue IV fluid continue IV Protonix Scheduled for Small Bowel Follow-Through Today Surgery following, recommendations noted Labs and medication were reviewed.. Continue same treatment. Continue with s ymptomatic treatment. Resume home medication. Monitor labs and vitals. DVT and GI prophylaxis. Further recommendations as per clinical course of the patient Dictation was produced using [employer] dictation software. please excuse any grammatical, word or spelling errors. Objective - Vital Signs Vital signs: Vital Signs Temp 98.1 F 08/22/24 12:16 Pulse 96 08/22/24 12:16 Resp 20 08/22/24 12:16 BP 180/90 08/22/24 12:16 Pulse Ox 95 08/22/24 12:16 FiO2 Intake & Output 08/21/24 08/22/24 08/22/24 18:59 06:59 18:59 Output Total 200 400 Balance -200 -400 Output: Gastric Drainage 200 400 Other: Voiding Method Toilet Toilet Toilet # Voids 2 3 # Bowel Movements 1 - Labs CBC & Chem 7: 08/21/24 05:59 08/21/24 05:59
--- NOTE | 2024-08-22 17:35 | FL ---
EXAMINATION TYPE: FL UGI w small bowel DATE OF EXAM: 08/22/2024 COMPARISON: Correlation CT 08/20/2024 CLINICAL INDICATION: Female, 79 years old with history of Bowel obstruction; [facility], TECHNIQUE: A single contrast FL UGI w small bowel study is performed with a total of 10 ounces of fu ll strength Gastrografin administered through the patient's NG tube. A total of 1 minute 36 seconds of fluoroscopic time was utilized during procedure and 46 images obtai tip. Total dose area product (DAP) in uGy*m?, mGy*cm? (or similar): 75 mGycm2. FINDINGS: Lead Business Analyst image of the abdomen shows small bowel loops dilated up to 6.1 cm. Surgical material noted projecting over the sacrum. Additional clips left side of the abdomen. An NG tube is present. No other space-occupying mass of the stomach. There may be some displacement of the stomach to the le ft due to dilated small bowel loops. There is a sliding small to moderate size hiatal hernia and inte rmittent gastroesophageal reflux to the upper chest. Proximal small bowel loops are normal caliber. However, as we had mid to distal progression of contra st, there are progressively dilated small bowel loops and progressive contrast dilution. Several dila dani up to 7.3 cm. On the last image performed at 6 hours 45 minutes, contrast opacified small bowel loops are demonstra dani. A lateral view shows no progression of contrast to the rectum. IMPRESSION: Findings suggest ongoing high-grade bowel obstruction (transition point probably near the anastomosis ) with small bowel loops dilated up to 7.3 cm. No contrast has entered the rectum after 6 hours 45 mi nutes. Consider follow-up KUB in the a.m. with the addition of a lateral view of the pelvis to assess for any rectal contrast. Patient with subtotal colectomy and small bowel to distal sigmoid anastomos is. [facility], , 08/22/2024 5:32 PM
--- NOTE | 2024-08-22 22:11 | P.PN ---
Subjective Progress Note Date: 08/22/24 CHIEF COMPLAINT: Bowel obstruction HISTORY OF PRESENT ILLNESS: The patient is a 79-year-old female with pre- existing history of bowel obstruction admitted for abdominal pain. Patient lives in a different state and is visiting [place] when she became ill. Patient had a upper GI small bowel follow-through. At the time of my assessment, patient reports she is using the bathroom. No passage of flatus at this time. No moderate abdominal pain. She still has a nasogastric tube. ROS: No reports of nausea and vomiting. No bowel movements. No fevers or chills. No new chest pain. No productive sputum PHYSICAL EXAM: VITAL SIGNS: Reviewed CONSTITUTIONAL: Well developed and in no acute distress. EYES: Conjuctivae without sclera icterus. Extraocular movements grossly intact. HEAD, EARS, NOSE, THROAT: Moist buccal mucosa. Head is atraumatic, normocephalic. Hears conversational speech. Blood around nose. Nasogastric tube present. RESPIRATORY: Non-labored respirations and equal bilateral excursions. CARDIOVASCULAR: Palpable 2+ radial pulses. ABDOMEN: No peritonitis. MUSCULOSKELETAL: No gross deformity of the lower extremities noted. No clubbing. No cyanosis. SKIN: Good skin turgor. Well perfused. NEUROLOGIC: Cranial nerves II through XII grossly intact. No focal or later alizing signs. PSYCH: Appropriate affect. Alert and oriented to person, place and time. CLINICAL LABS: Reviewed. Hemoglobin normal. White blood cell count 4.1. Potassium low 3.4. Lactic acidosis resolved. STUDIES: Small bowel follow-through independent reviewed demonstrate moderately dilated small bowel loops throughout the entire abdomen. This is my independent interpretation. ASSESSMENT: 1. Small bowel obstruction due to adhesions 2. Lactic acidosis resolved 3. Hypokalemia PLAN: 1. As her symptoms of bowel obstruction continues, patient may need surgical intervention with lysis of adhesions described. 2. May resume ice chips and popsicles. 3. Patient was to delay surgery for additional time for resolution of her bowel obstruction. Dictation was produced using [facility] dictation software. Please excuse any grammatical, word or spelling errors. Objective - Vital Signs Vital signs: Vital Signs Temp 98.1 F 08/22/24 12:16 Pulse 115 H 08/22/24 21:11 Resp 20 08/22/24 12:16 BP 165/85 08/22/24 21:11 Pulse Ox 93 L 08/22/24 21:11 FiO2 Intake & Output 08/22/24 08/22/24 08/23/24 06:59 18:59 06:59 Intake Total 60 Output Total 400 Balance -400 60 Intake: Oral 60 Output: Gastric Drainage 400 Other: Voiding Method Toilet Toilet Toilet # Voids 3 1 # Bowel Movements 1 1 - Labs CBC & Chem 7: 08/21/24 05:59 08/21/24 05:59
[2024-08-22] MEDS: SODIUM CHLORIDE 0.9% 1,000 ML IV SCH (22:49)
--- NOTE | 2024-08-23 07:57 | P.PN ---
Subjective Progress Note Date: 08/23/24 CHIEF COMPLAINT: Bowel obstruction HISTORY OF PRESENT ILLNESS: The patient is a 79-year-old female with pre- existing history of bowel obstruction admitted for abdominal pain. She had upper GI with small bowel follow-through yesterday. This morning, she reports 2 large bowel movements between last night this morning occluding passage of flatus. Patient's abdominal pain completely resolved. ROS: No reports of nausea and vomiting. No fevers or chills. No new chest pain. No productive sputum PHYSICAL EXAM: VITAL SIGNS: Reviewed CONSTITUTIONAL: Well developed and in no acute distress. EYES: Conjuctivae without sclera icterus. Extraocular movements grossly intact. HEAD, EARS, NOSE, THROAT: Moist buccal mucosa. Head is atraumatic, normocephalic. Hears conversational speech. Blood around nose. Nasogastric tube present. RESPIRATORY: Non-labored respirations and equal bilateral excursions. CARDIOVASCULAR: Palpable 2+ radial pulses. ABDOMEN: No peritonitis. Soft nontender. MUSCULOSKELETAL: No gross deformity of the lower extremities noted. No clubbing. No cyanosis. SKIN: Good skin turgor. Well perfused. NEUROLOGIC: Cranial nerves II through XII grossly intact. No focal or lateralizing signs. PSYCH: Appropriate affect. Alert and oriented to person, place and time. CLINICAL LABS: Reviewed. STUDIES: Small bowel follow-through report reviewed demonstrating high-grade bowel obstruction. ASSESSMENT: 1. Small bowel obstruction due to adhesions 2. Lactic acidosis resolved 3. Hypokalemia PLAN: 1. Clinically, patient is passing flatus and having bowel movements. I personally discontinued her nasogastric tube. 2. Will start clear liquid diet. 3. Recommend discharge home on full liquid diet. Patient advised to avoid any high-fiber foods including fruits and vegetables until seen by her local surgeon in [place]. 4. Anticipated disposition today or tomorrow pending tolerating full liquid diet Dictation was produced using [employer] dictation software. Please excuse any grammatical, word or spelling errors. Objective - Vital Signs Vital signs: Vital Signs Temp 97.4 F L 08/23/24 01:37 Pulse 99 08/23/24 01:37 Resp 18 08/23/24 01:37 BP 187/95 08/23/24 01:37 Pulse Ox 96 08/23/24 01:37 FiO2 Intake & Output 08/22/24 08/23/24 08/23/24 18:59 06:59 18:59 Intake Total 60 Output Total 540 Balance -480 Intake: Oral 60 Output: Gastric Drainage 540 Other: Voiding Method Toilet Toilet # Voids 1 # Bowel Movements 1 1 - Labs CBC & Chem 7: 08/21/24 05:59 08/21/24 05:59
[2024-08-23 08:18] LABS: Magnesium 1.8 mg/dL (1.5-2.4)
--- NOTE | 2024-08-23 08:21 | XR ---
EXAMINATION TYPE: XR pelvis AP view, XR KUB DATE OF EXAM: 08/23/2024 8:10 AM INDICATION: Patient age:Female; 79 years old; Reason for study: BOWEL OBSTRUCTION; PHH. pain COMPARISON: Upper GI with small bowel follow-through 08/22/2024, CT abdomen and pelvis 08/20/2024 TECHNIQUE: The pelvis was examined in a single lateral projection. One supine view of the abdomen was obtained. FINDINGS: There is no evidence of fracture or dislocation. There is no soft tissue abnormality. Mult ilevel degenerative changes of the lower spine. Multiple surgical clips within the left mid abdomen a nd bilateral tubal ligation clips in the pelvis. Enteric contrast is demonstrated throughout the colo n with extension into the rectum. Decreased distention of the small and large bowel from prior examin ation with the right colon measuring up to 5.8 cm. Pelvic phleboliths. IMPRESSION: Improving bowel obstruction with decreased distention of the large and small bowel. Enteric contrast reaches the rectum. [facility], , 08/23/2024 8:18 AM
[2024-08-23 08:59] LABS: Anion Gap 16.10 mmol/L (4.00-12.00); BUN/Creat Ratio 13.50 Ratio (12.00-20.00); Blood Urea Nitrogen 5.4 mg/dL (9.0-27.0); Calcium 7.9 mg/dL (8.7-10.3); Carbon Dioxide 21.9 mmol/L (21.6-31.8); Chloride 104 mmol/L (96-109); Glucose 91 mg/dL (70-110); Potassium 2.6 mmol/L (3.5-5.5); Sodium 142 mmol/L (135-145)
[2024-08-23] MEDS ORDERED: Potassium Replacement Protocol 1 EACH MISC MISCELLANE PRN (09:12)
--- NOTE | 2024-08-23 09:13 | P.PN ---
Progress Note - Text Progress Note Date: 08/23/24 Notified for severe hypokalemia, potassium 2.6. Potassium replacement protocol initiated including magnesium replacement. Electrolyte dyscrasias contribute to ileus in the setting of bowel obstruction
[2024-08-23] MEDS: MAGNESIUM SULFATE-D5W PMX 1 GM in DEXTROSE/WATER 1 100ML.BAG IVPB SCH (09:20)
[2024-08-23] MEDS: POTASSIUM CHLORIDE ER 20 MEQ TAB.ER PO SCH ×2 (09:20→23:54)
--- NOTE | 2024-08-23 09:31 | P.PN ---
Subjective Progress Note Date: 08/23/24 patient 79-year-old lady with history of prior bowel obstructions who presented the ER because of nausea and vomiting. Patient was all right couple of days back when started having nausea and vomiting. Patient was apparently vacationing in [place] when the symptoms started. Patient has history of prior bowel obstructions and became concerned immediately of having a similar episode. Complaining abdominal pain at that time as well. There was no complaint of chest pain. There was no complaint of orthopnea or PND. There was no complaint of shortness of breath at that time. Patient denies any palpitation. Patient denies any complaint of dizziness. There is no complaint of headache. Because of the symptoms, patient came to the ER Initial lab work done in the ER showed WBC 0.49, hemoglobin 16.1, platelet count 318, sodium 142, potassium 3.9, BUN 17, creatinine 0.58, glucose 185, lactate 2.2, calcium 10.1, AST 41, ALT 32 alk phos 99, total protein 7.2 EKG done in the ER showed heart rate of 94 , no ST segment elevation or depression seen, no T-wave inversions seen. X-ray KUB done Showed dilated bowel measuring up to 5.6 cm concerning for bowel obstruction CT abdomen and pelvis done showed finding consistent with a small bowel obstruction with transition point seen at the level of anastomosis. Patient admitted to internal medicine service 08/21. Patient seen and examined. States she feels better. Potassium was 3.4, replacement ordered. Still has NG tube in place. No further episode nausea or vomiting or abdominal pain. 08/22. Patient seen examined. Nausea and Vomiting, Still Has NG Tube in Place. Scheduled for Small Bowel Follow-Through Today 08/23. Patient examined. Presents morning is 2.8, patient started on clear liquid diet. REVIEW OF SYSTEMS: CONSTITUTIONAL: No fever, no malaise,. CARDIOVASCULAR: No chest pain, no palpitations, no syncope. PULMONARY: No shortness of breath, no cough, GASTROINTESTINAL: Mentioned above NEUROLOGICAL: No headaches, no weakness, PHYSICAL EXAMINATION: GENERAL: The patient is alert and oriented x3, not in any acute distress. Well developed, well nourished. HEENT: Pupils are round and equally reacting to light. EOMI. No scleral icterus. No conjunctival pallor. Normocephalic, atraumatic. No pharyngeal erythema. No thyromegaly. CARDIOVASCULAR: S1 and S2 present. No murmurs, rubs, or gallops. PULMONARY: Chest is clear to auscultation, no wheezing or crackles. ABDOMEN: Soft, nontender, nondistended, normoactive bowel sounds. No palpable organomegaly. MUSCULOSKELETAL: No joint swelling or deformity. EXTREMITIES: No cyanosis, clubbing, or pedal edema. NEUROLOGICAL: Gross neurological examination did not reveal any focal deficits. SKIN: No rashes. Assessment and plan Small bowel obstruction Lactic acidosis History of prior bowel obstruction Hypothyroidism Monitor vital signs Monitor CBC Monitor CMP Start on clear liquid diet Serial abdominal exam Serial electrolytes Potassium is 2.8, replacement ordered Surgery following, recommendations noted Labs and medication were reviewed.. Continue same treatment. Continue with symptomatic treatment. Resume home medication. Monitor labs and vitals. DVT and GI prophylaxis. Further recommendations as per clinical course of the p atient Dictation was produced using [employer] dictation software. please excuse any grammatical, word or spelling errors. Objective - Vital Signs Vital signs: Vital Signs Temp 98 F 08/23/24 08:00 Pulse 87 08/23/24 08:00 Resp 18 08/23/24 08:00 BP 181/84 08/23/24 08:00 Pulse Ox 95 08/23/24 08:00 FiO2 Intake & Output 08/22/24 08/23/24 08/23/24 18:59 06:59 18:59 Intake Total 60 Output Total 540 Balance -480 Intake: Oral 60 Output: Gastric Drainage 540 Other: Voiding Method Toilet Toilet # Voids 1 # Bowel Movements 1 1 - Labs CBC & Chem 7: 08/21/24 05:59 08/23/24 05:17 Labs: Abnormal Lab Results - Last 24 Hours (Table) 08/23/24 Range/Units 05:17 Potassium 2.6 A* (3.5-5.5) mmol/L Anion Gap 16.10 H (4.00-12.00) mmol/L BUN 5.4 L (9.0-27.0) mg/dL Creatinine 0.4 L (0.6-1.5) mg/dL Calcium 7.9 L (8.7-10.3) mg/dL
--- NOTE | 2024-08-23 20:08 | P.PN ---
Progress Note - Text Progress Note Date: 08/23/24 Patient reevaluated. She is tolerating full liquid diet. Patient did have severely low potassium less than 3.0 with moderate potassium replacement given. Recommend redraw of basic metabolic panel tomorrow morning after potassium replacement and advance diet to low fiber diet where vegetables and fruits are avoided.
[2024-08-24 04:14] LABS: ALT 21 U/L (4-34); AST 25 U/L (14-36); African American GFR (CKD) >90 (>60 ml/min/1.73 sqM); Albumin 3.3 g/dL (3.5-5.0); Albumin/Globulin Ratio 1.6; Alkaline Phosphatase 68 U/L (38-126); Anion Gap 8 mmol/L; Blood Urea Nitrogen 2 mg/dL (7-17); Calcium 8.3 mg/dL (8.4-10.2); Carbon Dioxide 26 mmol/L (22-30); Chloride 97 mmol/L (98-107); Globulin 2.1 g/dL; Glucose 101 mg/dL (74-99); Non-African American GFR(CKD) >90 (>60 ml/min/1.73 sqM); Potassium 3.2 mmol/L (3.5-5.1); Sodium 131 mmol/L (137-145); Total Protein 5.4 g/dL (6.3-8.2)
[2024-08-24] MEDS: POTASSIUM CHLORIDE ER 20 MEQ TAB.ER PO SCH ×2 (05:17→10:00)
[2024-08-24 07:51] VITALS: BP 154/91; PULSE 81; RESP 16; TEMP 98
--- NOTE | 2024-08-24 10:07 | P.PN ---
Progress Note - Text Progress Note Date: 08/24/24 From a surgical standpoint, patient may be discharged.
--- NOTE | 2024-08-24 10:32 | P.DS ---
Providers Date of admission: 08/20/24 07:06 Expected date of discharge: 08/24/24 Attending physician: Karla Lynch Consults: 08/20/24 07:06 Consult Physician Routine Consulting Provider: Nikki Rawls Consult Reason/Comments: small bowel obstruction Do you want consulting provider notified?: Already Contacted Primary care physician: Physician Nonstaff Hospital Course: Discharge diagnoses; Small bowel obstruction Hypokalemia Lactic acidosis History of prior bowel obstruction Hypothyroidism Hospital course; 79-year-old lady with history of prior bowel obstructions who presented the ER because of nausea and vomiting. Patient was all right couple of days back when started having nausea and vomiting. Patient was apparently vacationing in [place] when the symptoms started. Patient has history of prior bowel obstructions and became concerned immediately of having a similar episode. Complaining abdominal pain at that time as well. There was no complaint of chest pain. There was no complaint of orthopnea or PND. There was no complaint of shortness of breath at that time. Patient denies any palpitation. Patient denies any complaint of dizziness. There is no complaint of headache. Because of the symptoms, patient came to the ER Initial lab work done in the ER showed WBC 0.49, hemoglobin 16.1, platelet count 318, sodium 142, potassium 3.9, BUN 17, creatinine 0.58, glucose 185, lactate 2.2, calcium 10.1, AST 41, ALT 32 alk phos 99, total protein 7.2 EKG done in the ER showed heart rate of 94 , no ST segment elevation or depression seen, no T-wave inversions seen. X-ray KUB done Showed dilated bowel measuring up to 5.6 cm concerning for bowel obstruction CT abdomen and pelvis done showed finding consistent with a small bowel obstruction with transition point seen at the level of anastomosis. Patient admitted to internal medicine service 08/21. Patient seen and examined. States she feels better. Potassium was 3.4, replacement ordered. Still has NG tube in place. No further episode nausea or vomiting or abdominal pain. 08/22. Patient seen examined. Nausea and Vomiting, Still Has NG Tube in Place. Scheduled for Small Bowel Follow-Through Today 08/23. Patient examined. Presents morning is 2.8, patient started on clear liquid diet. 08/24. Patient seen and examined. Patient currently tolerating diet, cleared fr om surgery for discharge PHYSICAL EXAMINATION: GENERAL: The patient is alert and oriented x3, not in any acute distress. Well developed, well nourished. HEENT: Pupils are round and equally reacting to light. EOMI. No scleral icterus. No conjunctival pallor. Normocephalic, atraumatic. No pharyngeal erythema. No thyromegaly. CARDIOVASCULAR: S1 and S2 present. No murmurs, rubs, or gallops. PULMONARY: Chest is clear to auscultation, no wheezing or crackles. ABDOMEN: Soft, nontender, nondistended, normoactive bowel sounds. No palpable organomegaly. MUSCULOSKELETAL: No joint swelling or deformity. EXTREMITIES: No cyanosis, clubbing, or pedal edema. NEUROLOGICAL: Gross neurological examination did not reveal any focal deficits. SKIN: No rashes. Dictation was produced using [employer] dictation software. please excuse any grammatical, word or spelling errors. Patient Condition at Discharge: Stable Plan - Discharge Summary Discharge Rx Participant: No New Discharge Prescriptions: Continue Vit C/E/Zn/Coppr/Lutein/Zeaxan [Preservision Areds 2 Softgel] 1 cap PO PC-BID Docusate [Colace] 100 mg PO PC-BRKFST Multivitamins, Thera [Multivitamin (formulary)] 1 tab PO PC-BRKFST Aspirin EC [Ecotrin Low Dose] 81 mg PO PC-BRKFST Levothyroxine Sodium [Synthroid] 125 mcg PO AC-BRKFST Discharge Medication List Aspirin EC [Ecotrin Low Dose] 81 mg PO PC-BRKFST 08/20/24 [History] Docusate [Colace] 100 mg PO PC-BRKFST 08/20/24 [History] Levothyroxine Sodium [Synthroid] 125 mcg PO AC-BRKFST 08/20/24 [History] Multivitamins, Thera [Multivitamin (formulary)] 1 tab PO PC-BRKFST 08/20/24 [History] Vit C/E/Zn/Coppr/Lutein/Zeaxan [Preservision Areds 2 Softgel] 1 cap PO PC-BID 08/20/24 [History] Follow up Appointment(s)/Referral(s): Nonstaff,Physician [Primary Care Provider] - 1-2 days Patient Instructions/Handouts: Full Liquid Diet (DC) Activity/Diet/Wound Care/Special Instructions: Recommend full liquid diet on discharge. Avoid fiber such as fruits and vegetables until seen and evaluated by local surgeon
--- NOTE | 2024-08-24 12:03 | P.PN ---
Subjective Progress Note Date: 08/24/24 CHIEF COMPLAINT: Small bowel obstruction HISTORY OF PRESENT ILLNESS: Patient reports abdominal pain is resolved. She is tolerating the low fiber diet. She is having bowel movements. She plans to be discharged today. Afebrile. Potassium 3.3 patient receiving potassium supplement PHYSICAL EXAM: VITAL SIGNS: Reviewed GENERAL: Well-developed in no acute distress. HEENT: No sclera icterus. Extraocular movements grossly intact. Moist buccal mucosa. Head is atraumatic, normocephalic. Hears conversational speech. No nasal drainage. NECK: Supple without lymphadenopathy. CHEST: Non-labored respirations and equal bilateral excursions. CARDIOVASCULAR: Palpable 2+ radial pulses. ABDOMEN: Soft. Nondistended. Nontender. MUSCULOSKELETAL: No clubbing or cyanosis. NEUROLOGIC: No focal or lateralizing signs. Cranial nerves II through XII grossly intact. PSYCH: Appropriate affect. Alert and oriented to person, place and time. SKIN: Well perfused. Good skin turgor. ASSESSMENT: 1. Small bowel obstruction due to adhesions has resolved 2. Lactic acidosis resolved 3. Hypokalemia PLAN: - Patient can be discharged from surgical standpoint - Recommend continuing a low fiber diet - Potassium being corrected Physician Supervisor [employer] note has been reviewed by physician. Signing provider agrees with the documented findings, assessment, and plan of care. As above. Potassium supplement additional placed from this morning. Patient to be discharged to follow-up at her local provider's office in her hometown. Objective - Vital Signs Vital signs: Vital Signs Temp 98.0 F 08/24/24 07:25 Pulse 81 08/24/24 07:25 Resp 16 08/24/24 07:25 BP 154/91 08/24/24 07:25 Pulse Ox 96 08/24/24 07:25 FiO2 Intake & Output 08/23/24 08/24/24 08/24/24 18:59 06:59 18:59 Intake Total 1710 Balance 1710 Intake: Intake, IV Titration 960 Amount Sodium Chloride 0.9% 1, 960 000 ml @ 80 mls/hr IV . [id number] [facility] Rx#:[id number] Oral 750 Other: Voiding Method Toilet Toilet Toilet # Voids 1 3 - Labs CBC & Chem 7: 08/21/24 05:59 08/24/24 09:20 Labs: Abnormal Lab Results - Last 24 Hours (Table) 08/23/24 08/24/24 08/24/24 Range/Units 22:08 03:25 03:25 Sodium 131 L (137-145) mmol/L Potassium 3.0 L 3.2 L 3.2 L (3.5-5.1) mmol/L Chloride 97 L (98-107) mmol/L BUN 2 L (7-17) mg/dL Creatinine 0.31 L (0.52-1.04) mg/dL Glucose 101 H (74-99) mg/dL Calcium 8.3 L (8.4-10.2) mg/dL Total Protein 5.4 L (6.3-8.2) g/dL Albumin 3.3 L (3.5-5.0) g/dL 08/24/24 Range/Units 09:20 Sodium (137-145) mmol/L Potassium 3.3 L (3.5-5.1) mmol/L Chloride (98-107) mmol/L BUN (7-17) mg/dL Creatinine (0.52-1.04) mg/dL Glucose (74-99) mg/dL Calcium (8.4-10.2) mg/dL Total Protein (6.3-8.2) g/dL Albumin (3.5-5.0) g/dL
== END 2024-08-24 12:30 | disposition home or self-care (01) | DRG 389 ==
LOC: EC 02:35 → 4SSUR 07:06 → 5NMEDONC 08-21 00:42
PROVIDERS: ADMIT Hospitalist; ATTEND Hospitalist
PROC: 0D9670Z Drainage of Stomach with Drainage Device, Via Natural or Artificial Opening (ICD-10-PCS; principal; 2024-08-21)
DX: K56.50 Intestinal adhesions [bands], unspecified as to partial versus complete obstruction (principal); E87.20 Acidosis, unspecified; E03.9 Hypothyroidism, unspecified; K56.7 Ileus, unspecified; E86.0 Dehydration; E87.6 Hypokalemia; Z79.890 Hormone replacement therapy; Z85.038 Personal history of other malignant neoplasm of large intestine; Z90.49 Acquired absence of other specified parts of digestive tract; Z79.82 Long term (current) use of aspirin; Z79.899 Other long term (current) drug therapy
CPT/HCPCS: 36415; 71045; 72170; 74018; 74177; 74240; 74248; 80048; 80053; 81003; 82150; 83605; 83690; 83735; 84132; 85025; 93005; 96361; 96365; 96372; 96375; 96376; 99285